=== PATIENT | female | born 1995 | race Caucasian/White ===

== ENCOUNTER 2016-10-05 20:39 | Emergency (ER) | payer OTHER ==
[2016-10-05] MEDS ORDERED: LUTERA-28 TABL1 EACH PO (21:08)
[2016-10-05] MEDS ORDERED: KLONOPIN0.5 M1 PO (21:09)
[2016-10-05 21:53] LABS: ANION GAP 9 mmol/L (0-20); BLOOD UREA NITROGEN 15 mg/dl (6-24); CALCIUM 9.3 mg/dl (8.5-10.5); CARBON DIOXIDE-VENOUS 29 mmol/L (22-32); CHLORIDE 105 mmol/l (96-110); CREATININE 0.95 mg/dl (0.50-1.10); GLUCOSE 101 mg/dL (70-110); POTASSIUM 3.8 mmol/L (3.7-5.1); SODIUM 139 mmol/L (135-145); eGFR VALUE FOR BLACK >90 mL/Min
[2016-10-05] MEDS ORDERED: OMEPRAZOLE20 M4 PO (22:12)
== END 2016-10-05 22:22 ==
LOC: EDMED 20:39
PROVIDERS: Emergency Medicine
DX: K29.70 Gastritis, unspecified, without bleeding (principal); K21.9 Gastro-esophageal reflux disease without esophagitis